=== PATIENT | female | born 1965 | race Caucasian/White ===

== ENCOUNTER 2017-03-23 07:30 | Day surgery (SDC) | payer BC ==
[~2017-03-23 07:30] MED LIST: Clindamycin Phosphate in D5W 300 MG in Premix Bag 1 BAG IV SCH; Lactated Ringers 1,000 ML IV SCH; Lidocaine 2% 5 ML SDV ONE; Midazolam 1 MG/ML 2 ML SDV ONE; Propofol 200 MG/20 ML SDV ONE; Sodium Chloride 0.9% 10 ML Syringe FLUSH PRN; Sodium Chloride 0.9% 2.5 ML Syringe FLUSH PRN; fentaNYL 100 MCG/2 ML SDV ONE
--- NOTE | 2017-03-23 08:15 | PCM.PREANE ---
Preanesthetic Assessment - Anesthesia/Transfusion/Family Hx Anesthesia History: Prior Anesthesia Without Reaction Other Type of Anesthesia Reaction Comment: "it takes me awhile to wake up" Family History of Anesthesia Reaction: No Transfusion History: No Prior Transfusion(s) Intubation History: Unknown - Review of Systems General: No Symptoms Pulmonary: No Symptoms Cardiovascular: No Symptoms Gastrointestinal: No Symptoms Neurological: No Symptoms Other: Reports: None - Physical Assessment Height: 1.73 m Weight: 106.141 kg ASA Class: 2 Mental Status: Alert & Oriented x3 Airway Class: Mallampati = 2 Thyro-Mental Finger Breadths: 3 Mouth Opening Finger Breadths: 3 ROM/Head Extension: Full Lungs: Clear to Auscultation, Normal Respiratory Effort Cardiovascular: Regular Rate, Regular Rhythm - Lab Values: Laboratory Last Values Urine HCG, Qual NEGATIVE (NEGATIVE) 03/23/17 07:45 - Allergies Allergies/Adverse Reactions: Allergies Allergy/AdvReac Type Severity Reaction Status Date / Time adhesive Allergy Redness Verified 07/20/15 10:56 cefazolin sodium [From [facility]] Allergy Anaphylactic Verified 07/21/15 11:19 Shock Sulfa (Sulfonamide Allergy Redness Verified 07/09/15 12:20 Antibiotics) - Blood Blood Available: No Product(s) Available: None - Anesthesia Plan Free Text/Narrative:: no problems with anesthesia Pre-Op Medication Ordered: None - Acknowledgements Anesthesia Type Planned: General Anesthesia Pt an Appropriate Candidate for the Planned Anesthesia: Yes Alternatives and Risks of Anesthesia Discussed w Pt/Guardian: Yes Pt/Guardian Understands and Agrees with Anesthesia Plan: Yes PreAnesthesia Questionnaire HEENT History: Reports: Impaired Vision Other HEENT History: wears glasses Cardiovascular History: Reports: Hypertension Respiratory History: Reports: None Gastrointestinal History: Reports: GERD Other Gastrointestinal History: hernia Genitourinary History: Reports: None [employer] 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 Adhesives worn for 24 hours or more makes this worse. - Past Surgical History Head Surgeries/Procedures: Reports: None HEENT Surgical History: Reports: Tonsillectomy Cardiovascular Surgical History: Reports: None Respiratory Surgical History: Reports: None GI Surgical History: Reports: Appendectomy, Colon, Colonoscopy, Small Bowel Other GI Surgeries/Procedures: hx of Colon Resection. partial liver resection x2. Female Surgical History: Reports: Section Endocrine Surgical History: Reports: None Musculoskeletal Surgical History: Reports: None Other Oncologic Surgeries/Procedures: Colon Resection with resection of the liver Dermatological Surgical History: Reports: None - SUBSTANCE USE Smoking Status *Q: Never Smoker Days Per Week of Alcohol Use: 0 Number of Drinks Per Day: 0 Total Drinks Per Week: 0 Recreational Drug Use History: No - HOME MEDS Home Medications: Home Meds Cholecalciferol (Vitamin D3) [Vitamin D3] 1 tab PO ASDIRECTED 03/20/17 [History] - CURRENT (IN HOUSE) MEDS Current Meds: Current Medications Lactated Ringer's (Ringers, Lactated) 1,000 mls @ 125 mls/hr IV ASDIRECTED JANIE Clindamycin Phosphate 300 mg/ (Premix) 50 mls @ 96.154 mls/hr IV ONETIME JANIE Sodium Chloride (Saline Flush) 10 ml FLUSH ASDIRECTED PRN PRN Reason: Keep Vein Open Sodium Chloride (Saline Flush) 2.5 ml FLUSH ASDIRECTED PRN PRN Reason: Keep Vein Open Discontinued Medications Fentanyl (Sublimaze) Confirm Administered Dose 100 mcg .ROUTE .STK-MED ONE Stop: 03/23/17 07:20 Lidocaine (Xylocaine-Mpf 2%) Confirm Administered Dose 5 ml .ROUTE .STK-MED ONE Stop: 03/23/17 07:21 Midazolam HCl (Versed 1 Mg/Ml) Confirm Administered Dose 2 mg .ROUTE .STK-MED ONE Stop: 03/23/17 07:20 Propofol (Diprivan 20 Ml) Confirm Administered Dose 200 mg .ROUTE .STK-MED ONE Stop: 03/23/17 07:20
[2017-03-23] MEDS ORDERED: Bupivacaine 0.5% 10 ML SDV ONE (08:37)
[2017-03-23] MEDS ORDERED: Lidocaine 1% with EPINEPHrine 1:100,000 20 ML MDV ONE (08:37)
[2017-03-23] MEDS ORDERED: Midazolam 1 MG/ML 2 ML SDV ONE (08:56)
[2017-03-23] MEDS ORDERED: Propofol 200 MG/20 ML SDV ONE (09:01)
[2017-03-23] MEDS ORDERED: Ondansetron 4 MG/2 ML SDV ONE (09:08)
[2017-03-23] MEDS ORDERED: diphenhydrAMINE 50 MG/ML SDV ONE (09:08)
[2017-03-23] MEDS ORDERED: fentaNYL 100 MCG/2 ML SDV IVPUSH PRN (09:22)
--- NOTE | 2017-03-23 09:38 | PCM.OPNOTE ---
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
--- NOTE | 2017-03-23 10:08 | PCM.POSTAN ---
POST ANESTHESIA ASSESSMENT - MENTAL STATUS Mental Status: Alert, Oriented - RESPIRATORY Respiratory Status: Respiratory Rate WNL, Airway Patent, O2 Saturation Stable - CARDIOVASCULAR CV Status: Pulse Rate WNL - GASTROINTESTINAL GI Status: No Symptoms - PAIN Pain Score: 0 - POST OP HYDRATION Hydration Status: Adequate & Stable - OBSERVATIONS Free Text/Narrative:: no anesthesia problems
[2017-03-23 13:01] VITALS: BP 131/80
--- NOTE | 2017-03-23 21:39 | OR ---
SURGEON: QUETA WILEY MD DATE OF PROCEDURE: 03/23/2017 PREOPERATIVE DIAGNOSIS: Stitch fistula. POSTOPERATIVE DIAGNOSIS: Stitch fistula. PROCEDURE PERFORMED: Incisional debridement of abdominal wall fistula. ANESTHESIA: MAC. FLUIDS: See anesthesia record. ESTIMATED BLOOD LOSS: 5 mL. FINDINGS: Abdominal wall stitch fistula. No evidence of enteric contents. COMPLICATIONS: None. INDICATIONS: The patient is a 51-year-old female with a complicated past medical history. She previously had an upper midline incisional hernia repaired with Prolene stitches. Over the last year, she has had on and off drainage from a spot along her previous incision. This was debrided in clinic and initially had healed up. The wound then came back after 1 to 2 months. I explained to the patient that I believe this is a stitch fistula from one of her previous Prolene sutures. We discussed performing an excisional debridement and excision of this stitch to allow the area to close. We discussed the procedure as well as expected perioperative course and the need for dressing changes. We discussed the risks including bleeding, infection, or damage to surrounding structures including the risk of developing an incisional hernia at that site. The patient verbalized understanding and wishes to proceed. PROCEDURE IN DETAIL: The patient was brought into the OR and placed on the OR table in supine position. A time-out was completed verifying the patient's name, age, date of , allergies, and procedure to be performed. Monitored anesthesia care was induced. The abdomen was prepped and draped in the usual standard fashion. I anesthetized the area around the open wound on the anterior abdominal wall with 1% lidocaine with epinephrine. An elliptical incision was made along the skin lines around the ulcerated track. Cautery was used to dissect around and the fistula tract to the level of the fascia. The patient the patient clearly had a fistula from the abdominal wall fascia to the skin. This was sharply debrided at the level of the fascia. No enteric contents were noted to be draining from the wound. A fistula probe was used to probe around the base of the fistula and a Prolene suture was discovered. This was grasped and sharply cut. The full suture was removed from the wound base. The wound was then irrigated with normal saline and packed with saline soaked 4x4 gauze and covered with dry gauze. This was secured to the abdomen with paper tape. The patient tolerated the procedure well and was taken to PACU in stable condition. KHALIF / ROSE MARIE /[id number]
== END 2017-03-23 10:45 | disposition home or self-care (01) ==
LOC: MW.SDS 07:30
PROVIDERS: ATTEND Surgery
DX: T81.83XA Persistent postprocedural fistula, initial encounter (principal); I10 Essential (primary) hypertension; K21.9 Gastro-esophageal reflux disease without esophagitis; M19.90 Unspecified osteoarthritis, unspecified site; L10.2 Pemphigus foliaceous; E66.9 Obesity, unspecified; Z68.35 Body mass index [BMI] 35.0-35.9, adult; Z79.899 Other long term (current) drug therapy; Z88.2 Allergy status to sulfonamides; Z88.8 Allergy status to other drugs, medicaments and biological substances; Z85.038 Personal history of other malignant neoplasm of large intestine; Z90.89 Acquired absence of other organs; Z90.49 Acquired absence of other specified parts of digestive tract; Z98.890 Other specified postprocedural states
CPT/HCPCS: 11043; 81025; J1200; J2250; J2405; J3010; J7120; 00840; 88304; J2704